=== PATIENT | female | born 1945 | race Caucasian/White ===

== ENCOUNTER → 2018-09-28 | Outpatient (CLI) | payer OTHER ==
[~2018-09-28] MED LIST: ATOR40TA69 PO; LEVO25TA54 PO; LISI-617 PO
== END | disposition home or self-care (01) ==
LOC: RAH 11:19
PROVIDERS: ATTEND Family Medicine Adult Medicine
DX: Z12.31 Encounter for screening mammogram for malignant neoplasm of breast (principal)
CPT/HCPCS: 77067